=== PATIENT | male | born 1955 | race Caucasian/White ===

== ENCOUNTER → 2021-10-31 | Outpatient (CLI) | payer SELFPAY ==
--- NOTE | 2021-10-31 | FLU_PTH ---
PATIENT: CHRISTINA ORNELAS [facility]: [facility][id number] AGE/SX: 66/M ROOM: RE10/31/[address]: Dr. Davi Floyd MD : 1955 BED: DIS: 10/31/2021 SPEC #: [id number] RECD: 10/31/21 12:30 STATUS: BLANQUITA NORY #: [id number] GRETEL: 10/31/21 00:[address]: Davi Floyd DEPT: CYTOLOGY RECD BY: Raj Umana ENTERED: 10/31/21 12:30 SP TYPE: Fluid OTHR DR: Dr. Allen Theodore MD Tissues: A - Thyroid gland, NOS B - Thyroid gland, NOS Procedures: Special Stain Group II Surgery Specimen Level IV Cytospin Fluid HEADER OPERATION: Right thyroid biopsy PRE-OP DIAGNOSIS: Right thyroid nodules TISSUE SUBMITTED: A ? Right thyroid nodule fluid, B ? Right thyroid nodule x4 slides DIAGNOSIS CYTOLOGY A. Right thyroid nodule fluid, fine needle aspiration (cytospin and cell block): Consistent with benign follicular nodule. B. Right thyroid nodule, fine needle aspiration (smears): Consistent with benign follicular nodule ([place] category II). Adequate for evaluation. SJ:candelario 11/01/2021 COMMENT Correlation with clinical, radiologic findings and appropriate follow up are necessary. CYTOLOGY STUDY Slides are reviewed. CYTOLOGY GROSS A - Received is 30 ml of red cloudy fluid labeled with the patient's name and and designated per the requisition as right thyroid. Submitted for cytology preparation including cell block. B - Received are four smears labeled with the patient's name and designated per the requisition as right thyroid nodule. Submitted for staining. / candelario 10/31/2021 TC:5 CPT: 57407 x2, 11270
[2021-10-31 11:02] LABS: Free T3 3.4 pg/mL (2.18-3.98); T4 Total, Thyroxin 11.1 ug/dL (4.5-12.1); Thyroid Stim Hormone (TSH) 1.17 uIU/mL (0.358-3.74)
== END | disposition home or self-care (01) ==
PROVIDERS: PCP Family Medicine; Referring Provider Surgery; Visit Provider Surgery
DX: E04.1 Nontoxic single thyroid nodule (principal)
CPT/HCPCS: 36415; 84436; 84443; 84481; 88108; 88305; 88313

== ENCOUNTER → 2022-10-13 | Outpatient (CLI) | payer SELFPAY ==
--- NOTE | 2022-10-13 11:47 | US_ITS ---
STUDY: THYROID ULTRASOUND REASON FOR EXAM: Male, 67 years old. Thyroid nodule TECHNIQUE: Ultrasound evaluation of the thyroid was performed with real-time and static cosby-scale imaging. COMPARISON: None. FINDINGS: RIGHT LOBE: The right lobe of the thyroid gland measures 7.1 x 4.5 x 3.9 cm. There is a homogeneous echotexture. Large isoechoic nodule with cystic areas and calcification measuring 5.5 x 4.1 x 3.2 cm LEFT LOBE: The left lobe of the thyroid gland measures 4.2 x 4.5 x 3.9 cm. There is a homogeneous echotexture. Several subcentimeter hypoechoic nodules the dominant nodule in the mid thyroid lobe measures 0.4 x 0.3 x 0.2 cm. ISTHMUS: The isthmus measures 4 mm. . US/Thyroid IMPRESSION: 1. Large solid mass in the right thyroid lobe with cystic areas and a focal area of calcification. This nodule is moderately suspicious. Recommend FNA evaluation. 2. Several subcentimeter hypoechoic nodules in the left thyroid lobe. The dominant nodule in the mid thyroid lobe measure 0.4 x 0.3 x 0.2 cm. This nodule is moderately suspicious but no FNA or follow-up is necessary given the small size of this nodule. Electronically Signed: Glenn Aiken MD at 14:43 EDT ,
== END | disposition home or self-care (01) ==
PROVIDERS: PCP Family Medicine; Referring Provider Surgery; Visit Provider Surgery
DX: E04.1 Nontoxic single thyroid nodule (principal)
CPT/HCPCS: 76536

== ENCOUNTER → 2022-10-24 | Outpatient (CLI) | payer SELFPAY ==
[2022-10-24 14:40] LABS: T4 Total, Thyroxin 9.6 ug/dL (4.5-12.1); Thyroid Stim Hormone (TSH) 1.47 uIU/mL (0.358-3.74)
== END | disposition home or self-care (01) ==
PROVIDERS: PCP Family Medicine; Referring Provider Surgery; Visit Provider Surgery
DX: E04.1 Nontoxic single thyroid nodule (principal)
CPT/HCPCS: 36415; 84436; 84443; 84481

== ENCOUNTER 2022-11-13 05:58 | Day surgery (SDC) | payer SELFPAY ==
[2022-11-06 13:35] LABS: Anion Gap 8 (5-15); BUN 16 mg/dL (7-18); BUN/Creat Ratio 15.4 RATIO (10-20); Calcium,Total 9.3 mg/dL (8.5-10.1); Chloride 107 mmol/L (98-107); Creatinine, Serum 1.04 mg/dL (0.70-1.30); EST Glomerular Filtration Rate 76 mL/min (>60); Est Glom Filt Rate - Afr Amer 92 mL/min (>60); Glucose 91 mg/dL (74-106); Potassium 3.9 mmol/L (3.5-5.1); Sodium Level 139 mmol/L (136-145)
[2022-11-13] VITALS (9 sets, daily range): BP systolic 143–163; BP diastolic 68–88; PULSE 66–91; RESP 16–20; TEMP 36.2–36.7; O2SAT 90–94; BMI 36.0
--- NOTE | 2022-11-13 | IMM_PTH ---
PATIENT: CHRISTINA ORNELAS LOC: [facility] U#:[id number] AGE/SX: 67/M ROOM: RE11/13/[address]: Dr. Davi Floyd MD : 1955 BED: DIS: 11/13/2022 SPEC #: [id number] RECD: 11/15/22 13:22 STATUS: BLANQUITA REQ #: [id number] GRETEL: 11/13/22 00:[address]: Davi Floyd DEPT: IMMUNOHISTOCHEMISTRY RECD BY: Laura Lake ENTERED: 11/15/22 13:23 SP TYPE: IMMUNO OTHR DR: Dr. Allen Theodore MD Tissues: Thyroid gland, NOS Procedures: HBME (initial) CD56 (add) CK19 (add) GAL-3 (add) PHYSICIAN & INSTITUTION [place] [id number] SPECIMEN INFORMATION: Tissue Source: Thyroid Clinical Info: Thyroid nodule Specimen Number: [id number] #3 CPT code: 53103, 29040 x3 METHODOLOGY: Deparaffinized sections of prefer/formalin-fixed tissue or PAP/DQ stained slides are incubated with monoclonal/polyclonal antibodies/oligonucleotide probes. Localization is made via biotin free immunoperoxidase method. Appropriate controls are performed and reacted as expected. Results on target cell population are indicated in the following table: RESULTS: ANTIBODY / CLONE RESULT Block 3 HBME1 (HBME-1) positive CK19 (A53-B/A2.26) positive GAL3 (9C4) positive CD56 (123C3.D5) negative These tests were developed and their performance characteristics determined by [facility]. They may not have been cleared or approved by the U.S. Food and Drug Administration. The FDA has determined that such clearance or approval is not necessary. The above immunohistochemical/dualISH markers are ordered and reviewed by the Pathologist. INTERPRETATION: Thyroid, thyroidectomy: Incidental papillary microcarcinoma, follicular variant. WILEY:candelario 11/16/2022
[2022-11-13] MEDS: Lactated Ringers 1,000 ML 15 ML IV (06:59)
--- NOTE | 2022-11-13 07:30 | THYROID_PTH ---
PATIENT: CHRISTINA ORNELAS [place] [facility] [place]#:[id number] AGE/SX: 67/M ROOM: RE11/13/[address]: Dr. Davi Floyd MD : 1955 BED: DIS: 11/13/2022 SPEC #: [id number] RECD: 11/13/22 11:31 STATUS: BLANQUITA NORY #: [id number] GRETEL: 11/13/22 07:[address]: Davi Floyd DEPT: SURGICAL PATHOLOGY RECD BY: Libby Mejia ENTERED: 11/13/22 13:28 SP TYPE: THYROID OTHR DR: Dr. 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 Multinodular goiter. See cancer summary in the comment section. SJ:rg 11/16/2022 COMMENT THYROID CANCER SUMMARY Procedure: Right lobectomy and isthmusectomy Tumor Focality: Unifocal Tumor Site: isthmus Tumor Size: 0.2 x 0.2 cm (measured microscopically) Histologic Type: papillary carcinoma, follicular variant Margins: Margins uninvolved by carcinoma. The tumor is <0.1 cm away from the posterior margin. Angioinvasion: Not identified Lymphatic Invasion: Not identified Perineural invasion: Not identified Extrathyroidal Extension: Not identified Regional Lymph Nodes: No lymph nodes submitted or found. Distant metastasis: No applicable Additional Pathologic Findings: Multinodular goiter with a dominant nodule in the right lobe (4.5 cm in greatest dimension) with focal areas of adenomatoid nodule. Ancillary Studies: Please refer to [id number]. Clinical History: Please make reference to previous cytology ([id number]) right thyroid nodule, FNA with diagnosis of ?consistent with benign follicular nodule.? PATHOLOGIC STAGE: pT1a pNx pMx The above summary is in compliance with [employer] (CAP) Cancer Protocols Checklist and [place] Joint Committee on Cancer (AJCC), Staging Manual, 8th Ed. Case has been reviewed in consultation with Dr. Gilbert who concurs with the above diagnosis. IDC:AM MICROSCOPIC DESCRIPTION Slides are reviewed. GROSS DESCRIPTION Received in fixative is one container labeled with the patient's name and designated thyroid. The specimen consists of a lobe of thyroid with isthmus and attached fibrofatty tissue. A distinct left lobe is not identified. The right lobe measures 6.5 x 4.0 x 2.2 cm. The presumed isthmus measures 4.0 x 1.5 x 1.0 cm. The attached fibrofatty tissue measures 2.0 x 1.0 x 0.5 cm. A suture is present at one tip and designated as the right superior pole. The specimen has an aggregate weight of 37 gm. The entire posterior portion of the specimen is inked in black ink. The anterior surface of the right lobe is inked in blue ink. The presumed isthmus is inked in green ink. Serial sections of the presumed isthmus reveals rubbery, red cut surfaces. No distinct mass lesion is identified. Serial sections of the right lobe reveal a hemorrhagic soft gelatinous nodule measuring 4.5 x 3.5 x 2.5 cm. Pt Sitter sections are submitted in 12 cassettes as follows: 1-3 - presumed isthmus with attached fibrofatty tissue, 4-12 - office machines sales representative sections of right lobe. / AM:candelario 11/14/2022 TC:0 [facility]: [id number]
--- NOTE | 2022-11-13 07:32 | HP.PCM_ITS ---
History and Physical Date of Admission: 11/13/22 Date of Service:? 10/24/22 MR#: [id number] Acct: [id number] Name:CHRISTINA HERRING Rep #: [id number] : 1955 ? ? Provider: Dr. Davi Floyd MD Age/Sex:? 67/M ? ? Location: [facility] Status: Signed Intake Intake Visit Reasons:?THYROID F/U Chief Complaint: Thyroid Nodule Marketing Communications Assistant Required: No Is patient in pain?: No Allergies No Known Allergies Allergy (Unverified 10/24/22 12:50) Medications lisinopril 20 mg-hydrochlorothiazide 12.5 mg tablet 1 tab PO DAILY 10/31/21 [History Confirmed 10/24/22] meclizine 25 mg tablet 25 mg PO .Every 6 Hours PRN 10/31/21 [History Confirmed 10/24/22] PFSH Medical History? Hypertension Thyroid nodule Vertigo Surgical History? History of laparoscopic cholecystectomy Family History? Mother CVA (cerebral vascular accident) Social History? Smoking Status:? Never smoker alcohol intake:? never substance use type:? does not use HPI HPI HPI: Patient is a patient is known to me for history of bilateral thyroid nodules.? He was last seen 10/31/2021 and underwent biopsy of the right-sided thyroid nodule at that time with a result of a clear [place] 2.? Today he presents for routine surveillance.? In the interim he has undergone interval surveillance thyroid ultrasound which showed: Right thyroid nodule measuring 7.1 x 4.5 x 3.9 cm within this lobe there was a 5.5 x 4.1 x 3.2 cm nodule rated as a TI-RADS 3.? The left thyroid lobe measured 4.2 x 4.5 x 3.9 cm and contained subcentimeter nodules. Patient denies any significant health changes over the last 1 year, initially.? Further along the visit, he does remark of getting a serious cold last month and had some hoarseness as result.? He does not believe he has any lingering effects.? He denies any development of new compressive symptomology?specifically cough, hoarseness, difficulty swallowing, or worse snoring (patient denies any new complaints from his spouse) Below is recapitulated from patient's consultation visit for ease of review: HPI: CHRISTINA ORNELAS, is a 66 M who presents to the office today for thyroid nodules.? They are referred for surgical consultation from Dr. Theodore.? This was discovered incidentally during a work-up for radicular symptoms as part of a CT angiogram of the neck. They do not experience difficulty with swallowing.? They do not complain of a new cough.? They do not appreciate new voice changes.? They do have a history of snoring, but states this has been present for many Additionally, their weight has been stable and they do not have a history of weight gain/loss.? There is no history of recent fatigue.? They do not have a history of heat or cold intolerance. ? Regarding the most recent vertigo episode, and Mrs. Ornelas state they were at their home preparing to eat dinner when Mr. Ornelas suddenly began complaining of chest pains, became sweaty, and felt his hands stinging.? States that he was then worked up for stroke or heart attack and both of these came back negative.? He was told this likely was related to an inner ear problem.? Patient's reports that he had a passing out episode proximately 1-1/2 to 2 years ago when they were sitting on a porch and he simply slumped over.? He went on to wear a panel monitor for the next month, but there were no findings.? For his most recent work-up, in addition to the thyroid nodule noted on CTA imaging, he was noted to have a right renal mass and is due for urologic consultation on November 10.? They do not have a family history of thyroid disorders or endocrinopathies.? There is no history of prior radiation exposure. Previous work-up has included follow-up thyroid ultrasound.? This demonstrated a right thyroid lobe measuring 5.5 x 4.8 x 3.9 cm.? This lobe was largely occupied by a 3.8 x 4.4 x 4.7 cm nodule.? The isthmus measures 0.3 cm.? The left thyroid lobe measured 2.3 x 1.6 x 1.2 cm.? Within this lobe there is a 2 x 3 mm benign nodule and a second 4 mm benign nodule in the mid lateral lobe.? An FNA [has/has not] been performed.? Other tests include: [TSH, T3, T4,etc ] Exam Const General: cooperative, comfortable, no acute distress and well developed Orientation: alert, awake and oriented x3 Other: Stoic Neck Other: Patient with firm, lobular right thyroid lobe and less remarkable left thyroid lobe.? No lymphadenopathy is noted. Bedside ultrasound exam is made of patient's neck to review patient's recent thyroid ultrasound given marked changes reported.? The right thyroid lobe for me measures 7 x 4.1 x 3.9 cm.? Within this lobe there is a dominant (occupying majority of the lobe) nodule measuring 6.7 x 4.2 x 4 cm.? This nodule exhibits cystic pockets and coarse calcifications.? Patient's left thyroid lobe measures 4.2 x 1.6 x 1.1 cm.? There is a subcentimeter nodule within this lobe. Assessment and Plan Assessment and Plan (1) Thyroid nodule: ?Status:?Acute ?Comment: This is a 67-year-old male, euthyroid from an endocrine standpoint (as confirmed by laboratories obtained today), who presents for follow-up of an incidentally diagnosed right thyroid nodule.? This nodule was biopsied last year with an ultrasound-guided FNA technique and returned to clear [place] 2, adequate for evaluation.? Patient denies any development of new compressive symptomology, but radiology is reporting an increase in size of both the patient's thyroid nodule and lobe (this makes sense given that the nodule occupies the majority of the right thyroid lobe).? However, later in the visit he does seem to admit to some new hoarseness.? On exam he continues to exhibit a positive [place] sign.? I repeated the patient's thyroid ultrasound given significant discrepancies in the measurements from patient's prior thyroid ultrasound performed through [facility] on 10/14/2021.? I found patient's neck somewhat difficult to examine as the majority of the patient's right thyroid lobe lies below the level of his right clavicle.? However, I largely confirmed the results from patient's more recent thyroid ultrasound for both the right thyroid lobe measurements as well as the nodule measurements, however, I found the patient's left thyroid lobe to be far more diminutive than the right thyroid lobe and what was suggested on patient's most recent thyroid ultrasound.? TI-RADS rating for patient's right thyroid ultrasound is a TI-RADS 4 for predominantly solid nodule with hypoechoic echogenicity, and varying coarse calcifications.? I have shared with Mr. Ornelas that I would recommend considering proceeding for a right thyroid lobectomy given what appears to be significant interval growth on this side and the potential for tracheal deviation/impingement of the recurrent laryngeal nerve.? Overall, I am confident that this nodule is benign based on our FNA results from last year, but I have shared with Mr. Ornelas that there is a limitation in the sampling technique with FNA for nodules greater than 3 cm in diameter.? Mr. Ornelas expresses understanding of this information and would like to know more the terms of the operation as well as speak with his spouse before committing.? I have shared with him that I would plan for an outpatient disposition and that he should hopefully be able to return to work within 1 to 2 weeks of his operation.? Given that he remains euthyroid, he hopefully would not require postoperative supplemental thyroid hormone. ?Plan: ? Await patient's response to recommendation for right thyroid lobectomy with isthmusectomy using intraoperative nerve monitoring.? To be planned for as a outpatient procedure. ? ? ? Orders: Orders Free T3 Today E04.1 - Nontoxic single thyroid nodule ? T4 Total, Thyroxin Today E04.1 - Nontoxic single thyroid nodule ? Thyroid Stim Hormone (TSH) Today E04.1 - Nontoxic single thyroid nodule ? I have examined the patient and the H&P has been reviewed. There are no clinical changes since date of exam. Both the procedure as well as post procedure expectations were reviewed with patient. Neither he nor his offer any additional questions. Therefore we will proceed to the operating theater for right thyroid lobectomy with isthmusectomy and intraoperative nerve monitoring.
[2022-11-13] MEDS: Bupivacaine 0.25% 30 ML Vial (11:02)
--- NOTE | 2022-11-13 11:05 | OP.PCM_ITS ---
Report of Operation Date of Procedure: 11/13/22 Pre-Operative Diagnosis: Multinodular goiter with significantly increased growth during surveillance period Post-Operative Diagnosis: Same Surgery/Procedure Performed:: Right thyroid lobectomy and isthmusectomy with intraoperative nerve monitoring Description of Surgical Findings:: ? Large, highly vascular, gummy consistency thyroid lobe ? Visually and functionally (by nerve monitoring) intact recurrent laryngeal nerve Surgeon: Davi Floyd practice managers: Suly Diaz Type of Anesthesia: General/Supplemental Anesthesiologist: Vinay Lynne Specimen's removed: Right thyroid lobe and isthmus Estimated Blood Loss (mL): 100 Description of Procedure: After appropriate identification in the preoperative holding area, the patient was brought to the operating room where he was positioned supine on the operating room table. Induction of general endotracheal anesthetic was begun and a NIMS tube was placed under glidescope view to confirm coaptation with the vocal cords anteriorly. Tube was then secured and the patient was positioned with a shoulder roll so that his head was in extension but supported. The Nims electrodes were placed and connected to the monitor. We had appropriate resi stance showing on the monitor and tapping at the level of the cricoid produce a graphical representation of the impulse on the monitor. Patient's neck was then prepped and draped in usual sterile fashion and a formal timeout was conducted from those present. The lowest skin fold to the sternal notch was selected for incision site (this resided approximately 2 and half fingerbreadths cephalad to the notch). An incision was extended for 3 cm on either side of midline initially, but required further extension by approximately 1 cm to the right, later in the procedure. Electrocautery was used to deepen this incision through the level of the platysma. Subplatysmal flaps were raised with the use of electrocautery and blunt dissection. The strap muscles were then divided along the medial raphe bringing us down to the level of the thyroid. Capsular attachments to the thyroid were divided with the use of LigaSure or bluntly swept away with a peanut sponge. Retractors were placed visualization of the superior pole was hampered and so I elected to divide the strap muscles transversely with the LigaSure device. This maneuver afforded excellent visualization of the superior pole of the thyroid. The vessels of the superior pole were sequentially ligated with the use of the LigaSure device. As we moved towards the thyroid gland away from the polar vessels, we were careful to stay a djacent to the capsule and avoid the location of the superior parathyroid gland. We then moved inferiorly and divided those polar vessels with LigaSure. With the poles freed the thyroid was mobilized medially. I bluntly the remaining strap muscle fibers from the thyroid capsule using blunt dissection. Virtually at this point mobilization I partially avulsed the attachment of the middle thyroid vein. Upon recognizing this I secured and at the level of the capsule using a sajlls-[id number]-malux stitch with 3-0 Vicryl. With this hemostatic I then delivered the lobe out of the neck with gentle upward traction. Mobility was further improved by dividing several attachments at the inferior pole adjacent to the trachea. With this increased mobilization I was able to visualize the right recurrent laryngeal nerve and obtained a positive signal from her Nims monitor. The nerve positively identified, I relieved the attachments of the thyroid gland to the underlying trachea with the use of LigaSure. As we again approached the nerve insertion of the cricothyroid membrane, I elected to leave a minuscule amount of thyroid tissue intact using 4-0 silk ligatures. The recurrent laryngeal nerve signal was checked prior to the division of any thyroid tissue. In the cephalad portion of the incision, I encountered a pyramidal lobe that appeared enriched with adipose tissue. I bluntly this tissue from the adjacent musculature laterally and then divided it superiorly with the use of LigaSure. Once I had assured clearance from the nerve, the remaining thyroid tissue was removed from the anterior surface of the trachea with electrocautery to include the entirety of the thyroid isthmus. The specimen was divided with the LigaSure device for hemostasis. It was marked with a suture through the right superior pole and passed off the field for permanent section. Pressure was applied to the surgical cavity and there was some slight oozing along the anterior surface of the trachea well away from the recurrent laryngeal nerve. After irrigating the cavity, selective electrocautery was applied with good effect. Otherwise the wound bed was hemostatic. At this point I did confirm a positive signal from his right recurrent laryngeal nerve using our Nims monitor. Given the degree of oozing seen during the case, I sought to try to provoke any further bleeding that could be identified with a provocative maneuver so I asked anesthesia to perform a Valsalva maneuver for 30 seconds. Closer to the nerve there was some additional oozing and Surgicel hemostatic agent was placed while pressure was applied. Once this pressure was relieved, the surgical cavity was again inspected and we found hemostasis to be intact. Satisfied with this result, the strap muscles were reapproximated and then closed with a running 3-0 Vicryl stitch leaving a small gap at the inferior aspect of the suture line. The platysmal flaps were closed with interrupted 3-0 Vicryl. Some additional local anesthetic was infiltrated throughout the dermis and the skin was closed in a subcuticular fashion using 4-0 Monocryl. Steri-Strips were applied. Telfa and Tegaderm were used as a dressing. The patient was then awakened from anesthetic without event and was taken to PACU for ongoing recovery. Grafts/Implants Used: N/A Complications None Admit VTE Documentation VTE Mechan Device Prophylaxis: SCD's Procedures Endocrine CF Procedures [id number]: Other Procedure See Report ([id number])
--- NOTE | 2022-11-13 11:10 | DCINST_ITS ---
Discharge Instructions Diet Discharge Diet: No restrictions (However recommend a liquid to soft diet initially postoperatively) Activity Discharge Activity: May Not Drive (While it remains difficult to check blind spots quickly) May shower in (days): 2 Ice area for (Minutes): 20 Lifting Restrictions: No lifting greater than 15 pounds for 2 weeks after surgery Dressing / Incision Call your doctor if your incision/area has: Continuous Slow Oozing, Sudden Increased Bleeding, Increased Pain/ Swelling, Increased Redness and Swelling at the incision site Call your doctor if you observe: Numbness or Tingling Remove Dressing in: 2 days (Please leave Steri-Strips intact until they fall off spontaneously or are taken off at your follow-up visit) Cleanse incision/area with: Soap & Water Follow Up Care Please Follow Up With: Davi Floyd MD When: 7 days postop Test Results: Test results from this visit will be discussed in further detail at your follow- up appointment, if applicable. Discharge Plan Admission Primary Reason for Your Visit: Thyroid lobectomy Attending Provider: Davi Floyd Primary Care Provider: Allen Theodore Discharge Orders/Prescriptions Prescriptions: Continued meclizine 25 mg tablet 25 mg PO PRN PRN (Reason: Vertigo) lisinopril-hydrochlorothiazide 20-12.5 mg tablet 1 tab PO DAILY Referrals / Follow Up: Allen Theodore MD [Primary Care Provider] - Disposition Disposition (needs filled in before D/C Order can be placed): Home, Self Care
== END 2022-11-13 14:44 | disposition home or self-care (01) ==
LOC: SDC 06:04 → AC 06:04
PROVIDERS: Anesthesiology; PCP Family Medicine; Referring Provider Surgery; Visit Provider Surgery
PROC: (CPT 60220; principal; 2022-11-13 07:15)
DX: C73 Malignant neoplasm of thyroid gland (principal); E04.2 Nontoxic multinodular goiter; I10 Essential (primary) hypertension; Z79.899 Other long term (current) drug therapy
CPT/HCPCS: 60220; 00320; 36415; 80048; 88307; 88341; 88342; 93005; J7120; J2405; J3490

== ENCOUNTER → 2022-12-27 | Outpatient (CLI) | payer SELFPAY ==
[2022-12-27 14:45] LABS: Free T3 2.6 pg/mL (2.18-3.98); T4 Total, Thyroxin 7.3 ug/dL (4.5-12.1)
== END | disposition home or self-care (01) ==
PROVIDERS: PCP Family Medicine; Referring Provider Surgery; Visit Provider Surgery
DX: E89.0 Postprocedural hypothyroidism (principal)
CPT/HCPCS: 36415; 84436; 84443; 84481

== ENCOUNTER 2023-04-17 05:47 | Day surgery (SDC) | payer SELFPAY ==
[2023-04-17 06:30] VITALS: BP 137/87; PULSE 60; RESP 18; TEMP 36.6; O2SAT 95; BMI 36.3
[2023-04-17] MEDS: Lactated Ringers 1,000 ML 15 ML IV (06:34)
[2023-04-17 06:48] LABS: Anion Gap 4 (5-15); BUN 17 mg/dL (7-18); BUN/Creat Ratio 14.5 RATIO (10-20); Calcium,Total 8.8 mg/dL (8.5-10.1); Chloride 107 mmol/L (98-107); Creatinine, Serum 1.17 mg/dL (0.70-1.30); EST Glomerular Filtration Rate 66 mL/min (>60); Est Glom Filt Rate - Afr Amer 80 mL/min (>60); Estimated Creatinine Clearance 64.13 ml/min; Glucose 105 mg/dL (74-106); Sodium Level 138 mmol/L (136-145)
--- NOTE | 2023-04-17 07:32 | DCINST_ITS ---
Discharge Instructions Diet Discharge Diet: No restrictions Activity Discharge Activity: Return to Normal Activity Dressing / Incision Call your doctor if your incision/area has: Increased Pain/ Swelling Follow Up Care Please Follow Up With: Desmond Rosales MD When: 1 month Test Results: Test results from this visit will be discussed in further detail at your follow- up appointment, if applicable. Discharge Plan Admission Attending Provider: Desmond Rosales Primary Care Provider: Allen Theodore Discharge Orders/Prescriptions Prescriptions: No Action meclizine 25 mg tablet 25 mg PO PRN PRN (Reason: Vertigo) lisinopril-hydrochlorothiazide 20-12.5 mg tablet 1 tab PO DAILY Referrals / Follow Up: Allen Theodore MD [Primary Care Provider] - Disposition Disposition (needs filled in before D/C Order can be placed): Home, Self Care
--- NOTE | 2023-04-17 07:33 | PCM.OPRPT ---
Problems Associated Problem List Diagnoses (1) Vocal cord paralysis: Report of Operation Date of Procedure: 04/17/23 Pre-Operative Diagnosis: right vocal cord immobility Post-Operative Diagnosis: right vocal cord immobility Surgery/Procedure Performed:: right vocal cord injection Surgeon: Desmond Rosales Type of Anesthesia: General Description of Procedure: on the day of the procedure, after appropriate informed consent was obtained, the patient was brought to the operating room and placed in supine position on the operating table. he was placed under general endotracheal anesthesia by the anesthesiologist. the endotracheal tube was secured, the eyes were taped. the table was rotated 90 degrees toward the surgeon. a tooth guard was placed. a cindy laryngoscope was inserted into the oral cavity. a glottic view could not be obtained given the patient's cervical mobility, habitus and mandibular anatomy. given the situation, the glide scope was used to obtain a glottic view. 0.8cc of prolaryn gel was used to inject lateral to the right anterior 2/3 and posterior 1/3 of the vocal cord. the cord was medialized. he was awoken from anesthesia and transferred to the PACU in stable condition.
[2023-04-17 08:18] VITALS: BP 128/57; BP 137/87; PULSE 63; RESP 16; TEMP 36.1; O2SAT 94
[2023-04-17 08:29] VITALS: BP 122/69; BP 137/87; PULSE 62; RESP 18; O2SAT 94
[2023-04-17 08:39] VITALS: BP 125/77; BP 137/87; PULSE 58; RESP 18; TEMP 36.2; O2SAT 96
[2023-04-17 09:45] VITALS: BP 121/68; BP 137/87; PULSE 65; RESP 16; TEMP 36.3; O2SAT 94
== END 2023-04-17 09:47 | disposition home or self-care (01) ==
LOC: SDC 05:51 → AC 05:54
PROVIDERS: PCP Family Medicine; Referring Provider Otolaryngology; Visit Provider Otolaryngology
PROC: (CPT 31571; principal; 2023-04-17 07:15)
DX: J38.01 Paralysis of vocal cords and larynx, unilateral (principal); R49.0 Dysphonia; R13.13 Dysphagia, pharyngeal phase; I10 Essential (primary) hypertension; Z79.899 Other long term (current) drug therapy
CPT/HCPCS: 31571; 00320; 80048; J7120; J2405

== ENCOUNTER → 2023-06-29 | Outpatient (CLI) | payer SELFPAY ==
--- NOTE | 2023-06-29 08:47 | VDLE_ITS ---
Reason For Study: RLE PAIN RIGHT CFV is compressible, spontaneous, phasic, competent and demonstrates normal augmentation. FV is compressible, spontaneous, phasic, competent and demonstrates normal augmentation. POP V is compressible, spontaneous, phasic, competent and demonstrates normal augmentation. T/P Trunk is compressible. PTV is compressible. RT PerV is compressible. SFJ is competent and measures 0.71 x 0.61 cm. GSV proximal thigh measures 0.30 x 0.29 cm. GSV at knee measures 0.30 x 0.28 cm. GSV is competent throughout. SSV at junction is competent and measures 0.57 x 0.51 cm. Procedure This is a venous duplex using B-mode, color flow and spectral Doppler. Exam performed in department. VL/Venous Duplex US, Unilateral Interpretation Summary Deep veins of the right lower extremity are patent and compressible segmentally . There is no evidence of right lower extremity deep vein thrombosis. The right great sapheno us vein appears patent and compressible segmentally. Negative for reflux Ordering Physician: Angel Alvarado Referring Physician: Allen Theodore Performed By: Vandana Young, RDCS, RVT
== END | disposition home or self-care (01) ==
LOC: CVS 08:47
PROVIDERS: PCP Family Medicine; Referring Provider Surgery Trauma Surgery; Visit Provider Surgery Trauma Surgery
DX: R60.0 Localized edema (principal)
CPT/HCPCS: 93971

== ENCOUNTER 2023-07-05 06:52 | Day surgery (SDC) | payer OTHER, SELFPAY ==
[2023-07-04 07:56] VITALS: BMI 36.1
--- OUTSIDE RECORDS SUMMARY | 2023-07-05 06:55 | XMS RPT_ITS | CCD ---
Author Name Unknown Address [address] [facility] [address] [place] [address] Organization [facility] Care Team Providers Care Broke Beater Name Role Phone LILIA OWUSU Admitting Unavailable LILIA OWUSU Primary Care Unavailable LILIA OWUSU Attending Unavailable LILIA OWUSU Consulting Unavailable PROVIDER, UNKNOWN Consulting Unavailable PROVIDER, UNKNOWN Consulting Unavailable PROVIDER, UNKNOWN Consulting Unavailable Gaurav LONGORIA Attending Unavailable VON, J FATMATA Admitting Unavailable VON, J FATMATA Primary Care Unavailable LILIA OWUSU Consulting Unavailable PROVIDER, UNKNOWN Consulting Unavailable PROVIDER, UNKNOWN Consulting Unavailable PROVIDER, UNKNOWN Consulting Unavailable LILIA OWUSU Consulting Unavailable VONGaurav Attending Unavailable FELIX MEIER MD Referring Unavailable VON, J FATMATA Admitting Unavailable VON, J FATMATA Primary Care Unavailable PROVIDER, UNKNOWN Consulting Unavailable PROVIDER, UNKNOWN Consulting Unavailable PROVIDER, UNKNOWN Consulting Unavailable LILIA OWUSU Attending Unavailable LILIA OWUSU Admitting Unavailable LILIA OWUSU Primary Care Unavailable LILIA OWUSU Consulting Unavailable PROVIDER, UNKNOWN Consulting Unavailable PROVIDER, UNKNOWN Consulting Unavailable PROVIDER, UNKNOWN Consulting Unavailable Problems Problem Classification Problem Date Documented Da te Episodic/Chronic Other connective tissue disease (3 sources) Other specified soft tissue disorders; Translations: [Other specified soft tissue disorders] Onset: 04-12-2023 Episodic Results Test Name Value Interpretation Reference Range Facil ity Encounters Encounter Date Encounter Type Care Provider Facility Start: 04-12-2023 End: 04-12-2023 ambulatory LILIA OWUSU [facility] Start: 04-09-2023 End: 04-09-2023 ambulatory LILIA OWUSU [facility] Start: 05-04-2022 End: 05-04-2022 ambulatory Gaurav LONGORIA [facility] Start: 05-02-2022 End: 05-02-2022 ambulatory [facility] Payers Date Payer Category Payer Unknown [id number] 1955 Unknown [id number] Unknown Summary Purpose Family History No Family History Records FoundNo Family History Records FoundNo Family History Records Found Advance Directives No Advanced Directives Records FoundNo Advanced Directives Records FoundNo Advanced Directives Records Found Additional Source Comments (unrecognized sect ion and content) No Status Records FoundNo Status Records FoundNo Status Records Found INFORMATION SOURCE (unrecogn ized section and content) DATE CREATED AUTHOR AUTHOR'S ORGANIZ ATION 05/08/2021 [facility] DATE CREATED AUTHOR AUTHOR'S ORGANIZ ATION 04/14/2023 [facility] FOR RECORDS PERTAINING TO PATIENTS WHO ARE OR HAVE BEEN ENROLLED IN A CHEMICAL DEPENDENCY/SUBSTANCEABUSE PROGRAM, SOME INFORMATION MAY BE OMITTED. This clinical summary was aggregated from multiple sources. Caution should be exercised in using it in the provision of clinical care. This summary normalizes information from multiple sources, and as a consequence, information in this document may materially change the coding, format and clinical context of patient data. In addition, data may be omitted in some cases. CLINICAL DECISIONS SHOULD BE BASED ON THE PRIMARY CLINICAL RECORDS. [employer] provides no warranty or guarantee of the accuracy or completeness of information in this document.
[2023-07-05 07:10] LABS: Hematocrit 53.9 % (40-54); Hemoglobin 17.9 g/dL (13.0-16.5); Mean Corp Hgb Conc 33.2 g/dL (32-36); Mean Corpuscular Hgb 28.6 pg (27.0-32.0); Mean Corpuscular Volume 86.1 fL (80-94); Mean Platelet Vol. 8.3 fl (6.2-12.0); Platelet Count 166 K/mm3 (150-450); RBC Distribution Width CV 13.2 % (11.6-14.6); RBC Distribution Width SD 41.5 fl (35.1-43.9); Red Blood Count 6.26 M/mm3 (4.6-6.2)
[2023-07-05 07:35] LABS: Anion Gap 5 (5-15); BUN 17 mg/dL (7-18); BUN/Creat Ratio 13.7 RATIO (10-20); Calcium,Total 9.4 mg/dL (8.5-10.1); Chloride 105 mmol/L (98-107); Creatinine, Serum 1.24 mg/dL (0.70-1.30); EST Glomerular Filtration Rate 62 mL/min (>60); Est Glom Filt Rate - Afr Amer 75 mL/min (>60); Estimated Creatinine Clearance 60.51 ml/min; Glucose 101 mg/dL (74-106); Potassium 4.1 mmol/L (3.5-5.1); Sodium Level 139 mmol/L (136-145)
--- NOTE | 2023-07-05 09:09 | PCM.OPRPT ---
Report of Operation Date of Procedure: 07/05/23 Pre-Operative Diagnosis: right upper extremity edema, right lower extremity edema Post-Operative Diagnosis: same; venous thoracic outlet, external iliac compression Surgery/Procedure Performed:: venogram right upper extremity/SVC IVUS left common iliac, right common/external iliac, IVC, SVC, right innominate, right subclavian/axillary veins Surgeon: Angel Alvarado Type of Anesthesia: Local and Sedation,Conscious Estimated Blood Loss (mL): 2 Description of Procedure: HPI: Patient is a 67-year-old male with fairly abrupt onset of right upper extremity edema relatively shortly after excision of thyroid which was extensive and protruded inferior to the sternum and clavicle per patient report. He has had ultrasounds that are negative for DVT. This is failed to resolve with conservative measures and is limiting to his activity. He had no similar symptoms prior to the most recent episode. He also has developed a right lower extremity edema and foot and ankle tightness that are worse with standing. He had venous duplex of the right lower extremity which revealed no DVT and no reflux. He is taken now for venogram to assess for compression at the thoracic outlet as well as intravascular sound assessment of the iliac veins for compression. Description of procedure: Upon obtaining form consent and verification correct patient procedure site patient taken to the [facility] where he was positioned prepped and draped in usual fashion. Time was performed and skin overlying the right basilic vein cephalad to the antecubital fossa was anesthetized 1% lidocaine. The vessel was then accessed under ultrasound guidance with micropuncture needle wire and then exchanged out for micropuncture sheath. Through the micropuncture sheath hand-injection right upper extremity venogram was performed which revealed satisfactory positioning with no extravasation or dissection. There is also revealed slowed contrast transit particular centrally with some reflux into collateral branches. Bentson wires and advanced and the micropuncture sheath exchanged out for a KMP catheter which was advanced initially into the subclavian vein. From this position subtraction angiography was performed of the subclavian innominate and SVC vessels both in neutral position as well as abducted and extended cephalad. This showed significant contrast slowed transit at the thoracic outlet at the costo clavicular angle. This was no worse with any particular positioning. Bentson wire was then readvanced and navigated across the SVC and ultimately into the IVC. KMP cath was then withdrawn and an 8 Lithuanian sheath advanced. Intravascular shunt probe was then advanced over the wire and recorded pullback performed of the left common iliac, inferior vena cava, superior vena cava, right innominate vein, right axillary subclavian vein. Next the Bentson wire was repositioned into the right iliac vein system and recorded pullback performed of the right external leg vein, right common iliac vein and into the IVC. Intravascular sound revealed 56% compression of the right external iliac vein. There was also dynamic compression due to the adjacent artery of the proximal subclavian vein of 48% at the costo clavicular angle. After imaging was obtained the wire and catheter drawn in the sheath withdrawn with manual pressure held and satisfactory hemostasis noted. Patient was then taken recovery room for bedrest prior to discharge home.
== END 2023-07-05 10:59 | disposition home or self-care (01) ==
PROVIDERS: PCP Family Medicine; Referring Provider Surgery Trauma Surgery; Visit Provider Surgery Trauma Surgery
DX: R60.0 Localized edema (principal); I87.1 Compression of vein; I10 Essential (primary) hypertension; R06.02 Shortness of breath; Z79.899 Other long term (current) drug therapy
CPT/HCPCS: 36005; 36010; 36415; 37252; 37253; 75820; 75827; 76937; 80048; 85027; 99152; 99153; C1753; C1769; C1894; J7040; Q9967

== ENCOUNTER → 2023-08-06 | Outpatient (CLI) | payer OTHER, SELFPAY ==
--- OUTSIDE RECORDS SUMMARY | 2023-08-06 11:55 | XMS RPT_ITS | CCD ---
Author Name Unknown Address [address] [place] [address] Organization [facility] Care Team Providers Care Patient Relations Specialist Name Role Phone ALLEN THEODORE Admitting Unavailable ALLEN THEODORE Primary Care Unavailable ALLEN THEODORE Attending Unavailable ALLEN THEODORE Consulting Unavailable PROVIDER, UNKNOWN Consulting Unavailable PROVIDER, UNKNOWN Consulting Unavailable PROVIDER, UNKNOWN Consulting Unavailable VON, J GARRETT Attending Unavailable VON, J GARRETT Admitting Unavailable VON, J GARRETT Primary Care Unavailable ALLEN THEODORE Consulting Unavailable PROVIDER, UNKNOWN Consulting Unavailable PROVIDER, UNKNOWN Consulting Unavailable PROVIDER, UNKNOWN Consulting Unavailable ALLEN THEODORE Consulting Unavailable VON, J GARRETT Attending Unavailable FELIX MEIER MD Referring Unavailable VON, J GARRETT Admitting Unavailable VON, J GARRETT Primary Care Unavailable PROVIDER, UNKNOWN Consulting Unavailable PROVIDER, UNKNOWN Consulting Unavailable PROVIDER, UNKNOWN Consulting Unavailable ALLEN THEODORE Attending Unavailable ALLEN THEODORE Admitting Unavailable ALLEN THEODORE Primary Care Unavailable ALLEN THEODORE Consulting Unavailable PROVIDER, UNKNOWN Consulting Unavailable PROVIDER, UNKNOWN Consulting Unavailable PROVIDER, UNKNOWN Consulting Unavailable Allen Theodore MD Unavailable Nader MURILLO, Dr. Crum Unavailable Dr. Angel Alvarado Unavailable [facility] Unavailable [facility], [facility] Unavailable [facility] Unavailable [phone] Dr. Kennedy Longoria MD ([place]) Unavailable [phone] [facility], . Unavailable [facility] Unavailable Dr. Sreekanth Zamudio MD Unavailable [phone] Moiz BLAND, Iram Nolasco Unavailable Salma Morris LPN Unavailable Unavailable Kristian YOUNGN, Irish Unavailable Unavailable Morro CASTANEDA, Hubert Lutz Unavailable Rachel, Raina Arias Unavailable Unavailable Nadine WHITE, Belle Lutz Unavailable Unavaila indy Vazquez TEXTILE KNITTER, Peter Unavailable Unavailable Dong TEXTILE KNITTER, Alesia Unavailable Unavailable Mingo BLAND, Karly J Unavailable [phone] Roseline NATURAL GAS INSPECTOR, Nai Unavailable Unavailable Miguel A TEXTILE KNITTER, Ellie M Unavailable Unavailab le Boy TEXTILE KNITTER, Lori Hawkins Unavailable Unavailab le Unavailable Unavailable Medications Current Medications Medication Drug Class(es) Dates Sig (Normalized) Sig (Original) hydroCHLOROthiazide 12.5 mg / lisinopril 20 mg oral tablet (5 sources) Thiazide Diuretic, Angiotensin Converting Enzyme Inhibitor Start: 05-15-2023 lisinopriL 20 mg-hydrochlorot hiazide 12.5 mg tablet ; 1 (one) Tablet Tablet qd for 0 days Quantity: 90 {Tablet} Refills: 1 Ordered: 15-May-2023 MD Allen Theodore Start: 15-May-2023 Completed/Discontinued Medications Medication Drug Class(es) Dates Sig (Normalized) Sig (Original) amoxicillin 500 mg oral tablet (5 sources) Penicillin-class Antibacterial Start: 03-08-2011 End: 03-18-2011 take 1 tablet by mouth three times daily AMOXICILLIN, 500MG (Oral Tablet) ; 1 Tab three times daily for 10 days Quantity: 30 {Tab} Refills: 0 Ordered: 11-Apr-2011 MD Allen Theodore Start: 08-Mar-2011 End: 18-Mar-2011 Status: Inactive amoxicillin 875 mg / clavulanate 125 mg oral tablet (10 sources) Penicillin-class Antibacterial Start: 09-05-2022 End: 09-15-2022 take 1 tablet by mouth twice daily at mealtime Amoxicillin-Pot Clavulanate 875-125 MG Oral Tablet ; 1 (one) Tablet BID for 10 days Quantity: 20 {Tablet} Refills: 0 Ordered: 05-Sep-2022 MD Allen Theodore Start: 05-Sep-2022 End: 15-Sep-2022 Status: Inactive Comments: Take with food Problems Active Problems Problem Classification Problem Date Documented Date Episodic/Chronic Acute bronchitis (15 sources) Acute bronchitis; Translations: [Acute bronchitis, unspecified] 10-20-2021 Episodic Chronic obstructive pulmonary disease and bronchiectasis (20 sources) Bronchitis; Translations: [Bronchitis, not specified as acute or chronic] 10-20-2021 Episodic Conditions associated with dizziness or vertigo (20 sources) Acute labyrinthitis; Translations: [Labyrinthitis, unspecified ear] 10-20-2021 Episodic Esophageal disorders (20 sources) Gastroesophageal reflux disease; Translations: [Gastro-esophageal reflux disease without esophagitis] 05-15-2023 Chronic Essential hypertension (20 sources) Benign hypertension; Translations: [Essential (primary) hypertension] 05-15-2023 Chronic Nonspecific chest pain (10 sources) Chest pain; Translations: [Chest pain, unspecified] 10-20-2021 Episodic Other aftercare (15 sources) Drug indicated; Translations: [Other senior living (current) drug therapy] 10-20-2021 Episodic Other connective tissue disease (3 sources) Other specified soft tissue disorders; Translations: [Other specified soft tissue disorders] Onset: 04-12-2023 Episodic Other connective tissue disease (20 sources) Swelling of right upper limb; Translations: [Other specified soft tissue disorders] 05-15-2023 Episodic Other diseases of kidney and ureters (20 sources) Renal mass; Translations: [Other specified disorders of kidney and ureter] 05-15-2023 Chronic Other ear and sense organ disorders (15 sources) Hearing loss of right ear; Translations: [Unspecified hearing loss, right ear] 06-12-2017 Chronic Other ear and sense organ disorders (20 sources) Impacted cerumen; Translations: [Impacted cerumen, unspecified ear] 10-20-2021 Episodic Other injuries and conditions due to external causes (5 sources) Injury of right shoulder; Translations: [Unspecified injury of right shoulder and upper arm, initial encounter] 09-30-2019 Episodic Other lower respiratory disease (10 sources) Lower respiratory tract infection; Translations: [Unspecified acute lower respiratory infection] 10-20-2021 Episodic Other lower respiratory disease (15 sources) Dyspnea; Translations: [Shortness of breath] 10-20-2021 Episodic Other lower respiratory disease (5 sources) Cough; Translations: [Cough] 03-29-2021 Episodic Other nutritional; endocrine; and metabolic disorders (20 sources) Body mass index 30+ - obesity; Translations: [Body mass index (BMI) 34.0-34.9, adult] 09-30-2018 Chronic Other screening for suspected conditions (not mental disorders or infectious disease) (20 sources) Screening for malignant neoplasms of prostate; Translations: [Patient encounter status] 10-20-2021 Episodic Other upper respiratory infections (20 sources) Acute pharyngitis; Translations: [Acute pharyngitis, unspecified] 10-20-2021 Episodic Pneumonia (except that caused by tuberculosis or sexually transmitted disease) (10 sources) Right lower zone pneumonia; Translations: [Pneumonia, unspecified organism] 10-20-2021 Episodic Regional enteritis and ulcerative colitis (15 sources) Ulcerative colitis; Translations: [Ulcerative colitis, unspecified, without complications] 05-15-2023 Chronic Residual codes; unclassified (15 sources) Influenza vaccination declined; Translations: [Immunization not carried out because of patient refusal] 05-15-2023 Episodic Screening and history of mental health and substance abuse codes (10 sources) Patient encounter status; Translations: [Encounter for screening for depression] 10-20-2021 Episodic Superficial injury; contusion (10 sources) Contusion of right hand; Translations: [Contusion of right hand, initial encounter] 10-20-2021 Episodic Syncope (15 sources) Syncope; Translations: [Syncope and collapse] 11-06-2022 Episodic Thyroid disorders (20 sources) Thyroid nodule; Translations: [Nontoxic single thyroid nodule] 05-15-2023 Chronic Unclassified (5 sources) Follow Up for Multiple Chronic Conditions - The patient is here for follow-up of GERD and hypertension. The patient always takes the prescribed medications. No side effects noted (needs refill). The patient has an active lifestyle but no regular exercise program. The patient's out of office blood pressure checks occur rarely and dietary compliance is fairly good usually adhering to recommendations. The patient states that there is no recent angina or dyspnea, weight has decreased (down 5 pounds) and headaches are rarely noted. Note for Multiple chronic conditions follow-up : reviewed by [facility] 05-15-2023 Unclassified (5 sources) Follow Up for Multiple Chronic Conditions - The patient is here for follow-up of GERD and hypertension. The patient always takes the prescribed medications. No side effects noted (needs refills). The patient has an active lifestyle but no regular exercise program. The patient's out of office blood pressure checks occur rarely and dietary compliance is fairly good usually adhering to recommendations. The patient states that there is no recent angina or dyspnea, weight has decreased (down 2 pounds) and headaches are rarely noted. Note for Multiple chronic conditions follow-up : Complains of productive cough for 8 weeks. He is scheduled for surgery to remove R lobe of thyroid next week 11-07-2022 Unclassified (5 sources) Follow up for multiple chronic conditions - The patient is here for follow-up of GERD and hypertension. The patient always takes the prescribed medications. No side effects noted. The patient has an active lifestyle but no regular exercise program. The patient's out of office blood pressure checks occur rarely. The patient states that weight is unchanged and headaches have been noticed occasionally (due to dizziness from inner ear). The patient states that the disease has no overall impact. 05-11-2022 Unclassified (5 sources) Follow up from hospital stay - Name of Hospital: [facility] . Date of Admission: 10/12/2021. Date of Discharge: 10/12/2021. The patient was hospitalized for Dizziness. New medications include Meclizine . Patient did not have any consultations ordered while in the hospital. No post hospital therapies were ordered. Patient was discharged to home. Current Symptoms: Dizziness on and off . Note for Follow up from hospital stay : Needs refill on Meclizine and would like ultrasound results. He had some abnormalities of the kidney and thyroid on chest CT. These were incidental so we ordered more specific u/s of these areas. 10-20-2021 Unclassified (5 sources) Follow Up for Multiple Chronic Conditions - The patient is here for follow-up of GERD and hypertension. The patient always takes the prescribed medications. No side effects noted (needs refills). The patient has an active lifestyle but no regular exercise program. The patient's out of office blood pressure checks occur rarely and dietary compliance is fairly good usually adhering to recommendations. The patient states that there is no recent angina or dyspnea, weight has decreased (down 3 pounds) and headaches have been noticed occasionally. Note for Multiple chronic conditions follow-up : reviewed by [facility] 09-27-2021 Unclassified (5 sources) Follow Up for Multiple Chronic Conditions - The patient is here for follow-up of GERD and hypertension. The patient always takes the prescribed medications. No side effects noted (needs refills). The patient has an active lifestyle but no regular exercise program. The patient's out of office blood pressure checks occur rarely and dietary compliance is fairly good usually adhering to recommendations. The patient states that weight has increased (up 2 pounds). 03-29-2021 Unclassified (5 sources) Follow Up for Multiple Chronic Conditions - The patient is here for follow-up of hypertension. The patient always takes the prescribed medications. No side effects noted (needs refill). The patient has an active lifestyle but no regular exercise program. The patient's out of office blood pressure checks occur occasionally and dietary compliance is fairly good usually adhering to recommendations. The patient states that there is no recent angina or dyspnea, weight has increased (up 1 pound) and headaches have been noticed occasionally. Note for Multiple chronic conditions follow-up : reviewed by [facility] 03-30-2020 Unclassified (5 sources) Follow Up for Multiple Chronic Conditions - The patient is here for follow-up of hypertension. The patient always takes the prescribed medications. No side effects noted (needs refill). The patient has an active lifestyle but no regular exercise program. The patient's out of office blood pressure checks occur rarely and dietary compliance is fairly good usually adhering to recommendations. The patient states that weight has increased (up 4 pounds) and headaches are rarely noted. Note for Multiple chronic conditions follow-up : Has occasional chest pain with exertion. Has been coughing. 04-01-2019 Unclassified (5 sources) Follow Up for Multiple Chronic Conditions - The patient is here for follow-up of hypertension. The patient always takes the prescribed medications. No side effects noted (needs refill). The patient has an active lifestyle but no regular exercise program. The patient's out of office blood pressure checks occur rarely and dietary compliance is fairly good usually adhering to recommendations. The patient states that there is no recent angina or dyspnea, weight has decreased (down 5 pounds) and headaches have been noticed occasionally. Note for Multiple chronic conditions follow-up : Complains of productive cough for 1 week. reviewed by B 10-01-2018 Unclassified (5 sources) Follow Up for Multiple Chronic Conditions - The patient is here for follow-up of hypertension. The patient always takes the prescribed medications. No side effects noted (needs refill). The patient has an active lifestyle but no regular exercise program. The patient's out of office blood pressure checks occur rarely and dietary compliance is fair often eating foods not normally recommended. The patient states that weight has increased (up 10 pounds) and headaches are rarely noted. Note for Multiple chronic conditions follow-up : Complains of productive cough along with mild chest discomfort for a week. Has a history of pneumonia. reviewed by [facility] 03-18-2018 Unclassified (5 sources) Follow Up for Multiple Chronic Conditions - The patient is here for follow-up of hypertension (last BMP 07/14/2014.). The patient always takes the prescribed medications. No side effects noted. The patient has an active lifestyle but no regular exercise program. The patient's dietary compliance is poor and they admit to eating without regard of guidelines. The patient states that there is no recent angina or dyspnea, there are no vision changes or weakness and weight has increased (up 2# from last visit.). The patient states that the disease has no overall impact. Note for Multiple chronic conditions follow-up : Does not check out of office BP's. reviewed by [facility] 09-17-2017 Unclassified (5 sources) Follow up for multiple chronic conditions - The patient is here for follow-up of hypertension. The patient always takes the prescribed medications. No side effects noted. The patient has an active lifestyle but no regular exercise program. The patient's out of office blood pressure checks occur occasionally and dietary compliance is fair often eating foods not normally recommended. The patient states that there is no recent angina or dyspnea (short of breath at times), there are no vision changes or weakness, weight has increased (9 pound increase) and headaches have been noticed occasionally. Note for Multiple chronic conditions follow-up : reviewed by [facility] 03-09-2017 Unclassified (5 sources) Follow Up for Multiple Chronic Conditions - The patient is here for follow-up of hypertension. The patient always takes the prescribed medications. No side effects noted (needs refill). The patient has an active lifestyle but no regular exercise program. The patient's out of office blood pressure checks occur occasionally and dietary compliance is fairly good usually adhering to recommendations. The patient states that there is no recent angina or dyspnea, weight has decreased (down 5 pounds) and headaches are rarely noted. Note for Multiple chronic conditions follow-up : reviewed by [facility] 09-06-2016 Unclassified (5 sources) Follow Up for Multiple Chronic Conditions - The patient is here for follow-up of hypertension. The patient always takes the prescribed medications. No side effects noted (needs refill). The patient has an active lifestyle but no regular exercise program. The patient's out of office blood pressure checks occur occasionally (has been running high) and dietary compliance is fairly good usually adhering to recommendations. The patient states that there is no recent angina or dyspnea, weight has decreased (down 1 pound) and headaches are rarely noted. Note for Multiple chronic conditions follow-up : reviewed by [facility] 01-11-2016 Unclassified (5 sources) Follow Up for Multiple Chronic Conditions - The patient is here for follow-up of hypertension. The patient always takes the prescribed medications. No side effects noted (does not need refill). The patient has an active lifestyle but no regular exercise program. The patient's out of office blood pressure checks occur occasionally and dietary compliance is fairly good usually adhering to recommendations. The patient states that weight has decreased (down 7 pounds) and headaches are noted often but not on daily basis. Note for Multiple chronic conditions follow-up : Complains of mild chest pain on occasion with exertion. No shortness of breath. reviewed by [facility] 09-14-2015 Unclassified (5 sources) [ADDITIONAL REASON] Transition into care - The patient is transitioning into care from another physician ([facility]) and a summary of care was reviewed . 09-14-2015 Unclassified (5 sources) Follow Up for Multiple Chronic Conditions - The patient is here for follow-up of hypertension. The patient always takes the prescribed medications. No side effects noted (needs refill). The patient has an active lifestyle but no regular exercise program. The patient's out of office blood pressure checks occur occasionally and dietary compliance is fairly good usually adhering to recommendations. The patient states that there is no recent angina or dyspnea, weight is unchanged and headaches have been noticed occasionally. Note for Multiple chronic conditions follow-up : reviewed by [facility] 07-13-2015 Unclassified (5 sources) [facility] Routine Follow up - The patient is here for follow-up of hypertension. The patient always takes the prescribed medications. No side effects noted. 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 The patient's out of office blood pressure checks occur occasionally (Last home BP 119/69.) and dietary compliance is fairly good usually adhering to recommendations. The patient states that weight has decreased (down 4 pounds.). Note for Routine chronic follow-up : reviewed by [facility] 01-12-2015 Unclassified (5 sources) Follow Up for Multiple Chronic Conditions - The patient is here for follow-up of hypertension. The patient always takes the prescribed medications. No side effects noted (Needs refill). The patient has an active lifestyle but no regular exercise program. The patient's out of office blood pressure checks occur occasionally (157/87 this morning.). The patient states that weight has increased (Up 4 pounds.) and they do not have headaches. Note for Multiple chronic conditions follow-up : Complains of occasional shortness of breath upon exertion for the past couple of weeks. No chest pain. reviewed by [facility] 07-14-2014 Unclassified (5 sources) Follow Up for Multiple Chronic Conditions - The patient is here for follow-up of hypertension. The patient always takes the prescribed medications. No side effects noted (Needs refill.). The patient has an active lifestyle but no regular exercise program. The patient's out of office blood pressure checks occur occasionally and dietary compliance is fairly good usually adhering to recommendations. The patient states that there is no recent angina or dyspnea, weight has decreased (Down 1 pound) and headaches have been noticed occasionally (with occasional dizziness.). Note for Multiple chronic conditions follow-up : Pt has not had offcie check up for HTN in 2 years.He also c/o a chronic congetsed feeling in the right ear. 01-14-2014 Unclassified (5 sources) Follow Up for Multiple Chronic Conditions - The patient is here for follow-up of hypertension. The patient always takes the prescribed medications. No side effects noted (Needs refills.). The patient has an active lifestyle but no regular exercise program. The patient's out of office blood pressure checks occur occasionally (140/70 is an average home reading.) and dietary compliance is fair often eating foods not normally recommended. The patient states that weight has decreased (Down 2 pounds.) and headaches are rarely noted. Note for Multiple chronic conditions follow-up : reviewed by [facility] 05-01-2012 Past or Other Problems Problem Classification Problem Date Documented Da te Episodic/Chronic Conditions associated with dizziness or vertigo (5 sources) Conditions associated with dizziness or vertigo 06-16-2015 Unclassified (5 sources) Right arm swelling - Right arm and hand swelling for the past week and worsening slightly. No pain. No known injury. reviewed by [facility] 04-09-2023 Unclassified (5 sources) Cold Symptoms - Symptoms include sneezing, ear pain (left ear.), ear fullness, scratchy throat, dry cough and productive cough (clear sputum), but do not include nasal congestion, runny nose, wheezing (denies shortness of breath or chest pain), fever (has not checked but does not feel has had temperature or chills.), chills, general malaise, headache or facial pain. The onset was gradual 1 week(s) ago. The symptoms occur frequently (cough feels worse at night or when he says down). The patient describes this as moderate in severity and unchanged. Current treatment includes NSAIDs (one ibuprofen.) and cough drops. Risk factors do not include smoking. The patient has been exposed to an individual with a cough ( sickness all over the denominational - denies any known cases of COVID or influenza in his denominational). Patient denies history of seasonal allergies or tonsillectomy. 08-29-2022 Unclassified (5 sources) Hypertension - The onset of the hypertension has been acute. The hypertension has been occurring for 5 years. The course has been decreasing. Habits include medications as directed. Note for Hypertension : reviewed by [facility] 10-04-2020 Unclassified (5 sources) [ADDITIONAL REASON] Transition into care - The patient is transitioning into care from another physician (cardiology) and a summary of care was reviewed. Note for Transition into care : reviewed by B 10-04-2020 Unclassified (5 sources) Dizziness - The onset of the dizziness has been variable and has been occurring in an intermittent pattern for 3 months. The course has been recurrent. The dizziness is characterized as lightheadedness. There has been associated tinnitus, while there has been no associated nausea, vomiting, headache, fever or ear pain. Note for Dizziness : Has passed out three times in the past several weeks. Also complains of productive cough and shortness of breath for 1 week. No fever. Runny nose on occasion. Has a history of pneumonia and is concerned he has it again. reviewed by [facility] 02-24-2020 Unclassified (5 sources) Dizziness - The onset of the dizziness has been acute and has been occurring in a persistent pattern for 2 days. The course has been increasing. The dizziness is characterized as spinning of the environment. The dizziness is precipitated by position change, head turning and standing suddenly. There has been associated nausea, vomiting, ear fullness and neck stiffness, while there has been no associated tinnitus or visual changes. The dizziness is relieved by avoiding head movements. Note for Dizziness : reviewed by [facility] 12-17-2019 Unclassified (5 sources) Shoulder pain - The onset of the shoulder pain has been sudden following an incident not at work (fell yesterday) and has been occurring in a persistent pattern for 1 day. The course has been constant. The pain is characterized as a moderate sharp stabbing. The pain is described as being located in the right shoulder and is aggravated by any movement. Note for Shoulder pain : He was pulled by a horse and fell onto his side. 09-30-2019 Unclassified (5 sources) Cold Symptoms - Symptoms include runny nose, ear pain (right ear, becomes dizzy at times) and productive cough (chest and back hurts with coughing.), but do not include sore throat, wheezing, fever, general malaise, headache or facial pain. The onset was sudden 1 week(s) ago. The symptoms occur constantly. The patient describes this as worsening. The patient is not currently being treated for this problem. Patient denies history of seasonal allergies, asthma or tonsillectomy. Note for Upper respiratory infection : Has history of Bronchitis. 05-08-2019 Unclassified (5 sources) Cold Symptoms - Symptoms include sneezing, runny nose, sore throat and productive cough, but do not include ear pain, ear fullness, fever, chills, general malaise or headache. The onset was sudden week(s) ago. The symptoms occur frequently. The patient describes this as moderate in severity and worsening. Current treatment includes antibiotics (in June, never completely cleared up). Note for Upper respiratory infection : Also complains of itchy painful eyes. Eye sx started a few days ago.He was trated 06/12 and got a lot better but not a lot. 08-28-2017 Unclassified (5 sources) Cold Symptoms - Symptoms include sneezing, ear fullness, scratchy throat, hoarseness, productive cough and chills, but do not include nasal congestion, runny nose, ear pain, fever, general malaise, headache or facial pain. The onset was sudden 3 week(s) ago. The symptoms occur constantly. The patient describes this as moderate in severity and worsening. Current treatment includes cough suppressants. Patient denies history of seasonal allergies or asthma. Note for Upper respiratory infection : reviewed by [facility] 06-12-2017 Unclassified (5 sources) Hand pain - The onset of the hand pain has been sudden following an incident not at work (right hand caught between a gate,being pushed by a skid magazine grinder loader, and a silage conveyer.) and has been occurring in a persistent pattern for 1 day. The course has been gradually worsening. The hand pain is characterized as a moderate sharp stabbing. The hand pain is described as being located in the dorsal hand. The hand pain is aggravated by physical activity and any movement. The pain has been relieved by NSAIDs. The symptoms have been associated with painful ROM, decreased ROM and erythema, but have not been associated with warmth, fever or chills. There have been no previous diagnostic tests. There has been no previous evaluations. There has been no previous occupational therapy. There have been no previous surgeries. There has been no use of assistive devices. 03-03-2016 Unclassified (5 sources) Cough - The onset of the cough has been sudden and has been occurring in a persistent pattern for 4 days. The course has been constant. The cough is characterized as productive of white sputum (to yellowish sputum). The cough occurs all the time. The cough is aggravated by the supine posture. Associated symptoms include chest pain (more tightness when coughing and right upper back tender pulp drier especially when he sits up against something), dyspnea (and wheezing if he overexerts himself. PO 98%.), fever (chilled but has not actually taken temp at home. Here in office it is 99.6) and headache (and right ear feels closed), while there is no sinus discharge (minimal nasal congestion), sinus pressure or sore throat. 10-26-2014 Unclassified (5 sources) Dizziness - The onset of the dizziness has been variable and has been occurring in a persistent pattern for weeks. The course has been increasing. The dizziness is characterized as lightheadedness. The dizziness is precipitated by position change and head turning. There has been no associated nausea or vomiting. Note for Dizziness : Was to ENT a week ago. Also complains chest tightness today. 08-17-2014 Unclassified (5 sources) [ADDITIONAL REASON] Transition into care - The patient is transitioning into care from another physician (Seng HYDE) . 08-17-2014 Unclassified (5 sources) Dizziness - The onset of the dizziness has been acute and has been occurring in a persistent pattern for 2 days. The course has been decreasing (worse last evening.). The dizziness is characterized as spinning of the environment. There has been associated nausea, vomiting and ear fullness. Note for Dizziness : He had chills last night, vomitted x 2. 07-21-2014 Unclassified (5 sources) Ear pain - The onset of the pain has been gradual and has been occurring for 3 days. The course has been increasing. The pain is described as a moderate pressure. The pain is described as being located in the inner ear. The pain is felt in the right ear. The symptoms have been associated with chills, decreased hearing, tinnitus and vertigo, while the symptoms have not been associated with fever, sore throat or runny nose. Note for Ear pain : reviewed by [facility] 08-28-2011 Unclassified (5 sources) Cold Symptoms - Symptoms include sore throat, dry cough, fever (Did not take temperature but felt warm.), chills, general malaise and headache. The onset was sudden 2 day(s) ago. The symptoms occur constantly. The patient describes this as moderate in severity and unchanged. Current treatment includes NSAIDs. Note for Cold Symptoms : reviewed by [facility] 03-08-2011 Unclassified (5 sources) F/U Hypertension - Pt here for f/u of hypertension. Currently on Lisinopril 10 mg daily and tolerating well. Does need refill today to [facility]. Says that BP's at home run about 130's/70's. Today was 142/81. Denies any chest pain but does state that he has been experiencing some SOB with activity for past month and not sure why. No headaches, dizziness or visual problems. No problems with swelling of extremities. 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 10-07-2010 Unclassified (5 sources) Unspecified Diagnosis 06-07-2010 Results Test Name Value Interpretation Reference Range Facil ity Vital Signs Date Time Vital Sign Value Performing Clinician Faci lity 05-15-2023 09:00-0500 Body height 177.8 cm [facility] 05-15-2023 09:00-0500 Body mass index (BMI) [Ratio] 36.01 kg/m2 [facility] [employer] [facility] 05-15-2023 09:00-0500 Body surface area Derived from formula 2.3 m2 [facility] [employer] 05-15-2023 09:00-0500 Body [facility] 113.85 kg [facility] [facility] 05-15-2023 09:00-0500 Diastolic blood pressure 85 mm[Hg] [facility] [employer] Encounters Encounter Date Encounter Type Care Provider Facility Start: 05-15-2023 End: 05-15-2023 Office outpatient visit 15 minutes Allen Theodore MD Work Phone: [employer] Start: 04-12-2023 End: 04-12-2023 ambulatory [facility] Start: 04-10-2023 End: 04-10-2023 Orders Allen Theodore MD Work Phone: [employer] Start: 04-09-2023 End: 04-09-2023 ambulatory [facility] Start: 04-09-2023 End: 04-09-2023 Patient encounter procedure Allen Theodore MD Work Phone: [employer] Start: 11-07-2022 End: 11-07-2022 Office outpatient visit 15 minutes Allen Theodore MD Work Phone: [employer] Start: 08-29-2022 End: 08-29-2022 Office outpatient visit 15 minutes Allen Theodore MD Work Phone: [employer] Start: 05-11-2022 End: 05-11-2022 Office outpatient visit 15 minutes Allen Theodore MD Work Phone: [employer] Start: 05-04-2022 End: 05-04-2022 ambulatory Gaurav LONGORIA [facility] Start: 05-02-2022 End: 05-02-2022 ambulatory ALLEN THEODROE [facility] Start: 10-20-2021 End: 10-20-2021 Office outpatient visit 15 minutes Allen Theodore MD Work Phone: [employer] Start: 10-13-2021 End: 10-13-2021 Telephone follow-up Allen Theodore MD Work Phone: [employer] Start: 10-13-2021 End: 10-13-2021 Orders Allen Theodore MD Work Phone: [employer] Start: 09-27-2021 End: 09-27-2021 Office outpatient visit 15 minutes Allen Theodore MD Work Phone: [employer] Start: 03-29-2021 End: 03-29-2021 Office outpatient visit 15 minutes Allen Theodore MD Work Phone: [employer] Start: 03-22-2021 End: 03-22-2021 Orders Allen Theodore MD Work Phone: [employer] Start: 11-05-2020 End: 11-05-2020 Historical Summary Allen Theodore MD Work Phone: [employer] Start: 10-04-2020 End: 10-04-2020 Office outpatient visit 15 minutes Allen Theodore MD Work Phone: [employer] Start: 03-30-2020 End: 03-30-2020 Patient encounter procedure Allen Theodore MD Work Phone: [employer] Start: 02-24-2020 End: 02-24-2020 Patient encounter procedure Allen Theodore MD Work Phone: [employer] Start: 01-20-2020 End: 01-20-2020 Orders Allen Theodore MD Work Phone: [employer] Start: 12-17-2019 End: 12-17-2019 Office outpatient visit 15 minutes Allen Theodore MD Work Phone: [employer] Start: 09-30-2019 End: 09-30-2019 Office outpatient visit 15 minutes Allen Theodore MD Work Phone: [employer] Start: 05-08-2019 End: 05-08-2019 Office outpatient visit 15 minutes Allen Theodore MD Work Phone: [employer] Start: 04-01-2019 End: 04-01-2019 Office outpatient visit 15 minutes Allen Theodore MD Work Phone: [employer] Start: 10-01-2018 End: 10-01-2018 Office outpatient visit 15 minutes Allen Theodore MD Work Phone: [employer] Start: 03-18-2018 End: 03-18-2018 Office outpatient visit 15 minutes Allen Theodore MD Work Phone: [employer] Start: 09-17-2017 End: 09-17-2017 Office outpatient visit 15 minutes Allen Theodore MD Work Phone: [employer] Start: 09-11-2017 End: 09-11-2017 Historical Summary Allen Theodore MD Work Phone: [employer] Start: 08-28-2017 End: 08-28-2017 Office outpatient visit 15 minutes Allen Theodore MD Work Phone: [employer] Start: 06-12-2017 End: 06-12-2017 Office outpatient visit 15 minutes Allen Theodore MD Work Phone: [employer] Start: 03-16-2017 End: 03-16-2017 Evaluation finding Allen Theodore MD Work Phone: [employer] Start: 03-16-2017 End: 03-16-2017 Orders Allen Theodore MD Work Phone: [employer] Start: 03-09-2017 End: 03-09-2017 Office outpatient visit 15 minutes Allen Theodore MD Work Phone: [employer] Start: 09-06-2016 End: 09-06-2016 Office outpatient visit 15 minutes Allen Theodore MD Work Phone: [employer] Start: 03-03-2016 End: 03-03-2016 Office outpatient visit 15 minutes Allen Theodore MD Work Phone: [employer] Start: 01-11-2016 End: 01-11-2016 Office outpatient visit 15 minutes Allen Theodore MD Work Phone: [employer] Start: 09-14-2015 End: 09-14-2015 Office outpatient visit 15 minutes Allen Theodore MD Work Phone: [employer] Start: 07-13-2015 End: 07-13-2015 Office outpatient visit 15 minutes Allen Theodore MD Work Phone: [employer] Start: 06-28-2015 End: 06-28-2015 Orders Allen Theodore MD Work Phone: [employer] Start: 06-16-2015 End: 06-16-2015 Orders Allen Theodore MD Work Phone: [employer] Start: 06-16-2015 End: 06-16-2015 Nursing evaluation of patient and report Allen Theodore MD Work Phone: [employer] Start: 06-16-2015 End: 06-16-2015 Office outpatient visit 15 minutes Allen Theodore MD Work Phone: [employer] Start: 01-12-2015 End: 01-12-2015 Office outpatient visit 15 minutes Allen Theodore MD Work Phone: [employer] Start: 10-26-2014 End: 10-26-2014 Patient encounter procedure Allen Theodore MD Work Phone: [employer] Start: 08-17-2014 End: 08-17-2014 Office outpatient visit 15 minutes Allen Theodore MD Work Phone: [employer] Start: 08-05-2014 End: 08-05-2014 Orders Allen Theodore MD Work Phone: [employer] Start: 07-21-2014 End: 07-21-2014 Office outpatient visit 15 minutes Allen Theodore MD Work Phone: [employer] Start: 07-14-2014 End: 07-14-2014 Office outpatient visit 15 minutes Allen Theodore MD Work Phone: [employer] Start: 01-14-2014 End: 01-14-2014 Office outpatient visit 15 minutes Allen Theodore MD Work Phone: [employer] Start: 01-05-2014 End: 01-05-2014 Medication Allen Theodore MD Work Phone: [employer] Start: 05-01-2012 End: 05-01-2012 Patient encounter procedure Allen Theodore MD Work Phone: [employer] Start: 09-29-2011 End: 09-29-2011 Medication Allen Theodore MD Work Phone: [employer] Start: 08-28-2011 End: 08-28-2011 Patient encounter procedure Allen Theodore MD Work Phone: [employer] Start: 03-08-2011 End: 03-08-2011 Orders Allen Theodore MD Work Phone: [employer] Start: 03-08-2011 End: 03-08-2011 Patient encounter procedure Allen Theodore MD Work Phone: [employer] Start: 02-03-2011 End: 02-03-2011 Medication Allen Theodore MD Work Phone: [employer] Start: 10-07-2010 End: 10-07-2010 Patient encounter procedure Allen Theodore MD Work Phone: [employer] Start: 06-07-2010 End: 06-07-2010 Medication Allen Theodore MD Work Phone: [employer] Start: 06-07-2010 End: 06-07-2010 Historical Summary [facility] MD [facility] Evaluation finding Nai Tejadar [employer] [facility]; [facility] Procedures Date Procedure Procedure Detail Performing Clinician Start: 04-10-2023 End: 04-16-2023 Dup-scan uxtr art/artl bpgs uni/lmtd study Allen Theodore MD Work Phone: Start: 04-09-2023 End: 04-10-2023 Chest x-ray Allen Theodore MD Work Phone: Start: 10-13-2021 End: 10-20-2021 Us retroperitoneal real time w/image complete Allen Theodore MD Work Phone: Start: 10-13-2021 End: 10-20-2021 Us soft tissue head & neck real time imge docm Allen Theodore MD Work Phone: Start: 03-22-2021 End: 03-22-2021 Prostate specific antigen measurement Lori Brunson [facility] Plan of Treatment Date Care Activity Detail Author Start: 11-15-2023 Patient encounter procedure Medical; RTN OFFICE VISIT - 6 mo rtn [facility] Start: 15-Nov-2023 8:40 MD Allen Theodore [facility] Payers Date Payer Category Payer Unknown [id number] 1955 Unknown [id number] Unknown Social History Date Type Detail Facility Non Smoker/No Tobacco Use Non Smoker/No T obacco Use [facility] Tobacco Use: Tobacco Use: ; N ever smoker. [facility] [employer] [facility] [employer] Work Phone: Never smoked tobacco [facility] [employer] [facility] [employer] Work Phone: Summary Purpose Family History No Family History [...] DATE CREATED AUTHOR AUTHOR'S ORGANIZ ATION 04/14/2023 [facility] FOR RECORDS PERTAINING TO PATIENTS WHO [...] BE BASED ON THE PRIMARY CLINICAL RECORDS. [employer] provides no warranty or guarantee of the accuracy or completeness of information in this document.
[2023-08-06 13:37] LABS: PSA,Total - Annual Screen 3.28 ng/mL (0.00-4.00)
== END | disposition home or self-care (01) ==
LOC: LAB 11:16
PROVIDERS: PCP Family Medicine; Referring Provider Urology; Visit Provider Urology
DX: Z12.5 Encounter for screening for malignant neoplasm of prostate (principal)
CPT/HCPCS: 36415; 84153; G0103